=== PATIENT | female | born 1965 | race Caucasian/White ===

== ENCOUNTER → 2016-11-20 | Outpatient (CLI) | payer OTHER | LOC: CIMAGING 07:19 | DX: Z12.31 Encounter for screening mammogram for malignant neoplasm of breast (principal) | CPT/HCPCS: G0202 ==

== ENCOUNTER 2016-12-29 05:47 | Day surgery (SDC) | payer OTHER ==
--- NOTE | 2016-12-22 09:20 | GHP ---
[f rep st] PREOP HISTORY AND PHYSICAL PLANNED PROCEDURE: Hysteroscopy, morcellation of endometrial tissue, and endometrial ablation. INDICATION: Menorrhagia. HISTORY OF PRESENT ILLNESS: The patient is a 51-year-old, 2, para 2-0-0 -2, who has very heavy periods. Patient states her periods are monthly and very heavy for the first 3 days. She goes through a super plus tampon every 1- 2 hours and has moderate flow on the 4th day, then light flow on the 5th. She has cramps for the first day and a half. Patient has a history of a DVT after knee surgery. She did not have an evaluation for coagulopathy and was on blood thinners for 6 months following the DVT, and her periods were heavier during that time. Patient does a lot of travel to remote places and is interested in management options for her periods. Because she has had a history of a DVT following surgery, but no coagulopathy workup, she is not a candidate for control pills or hormone replacement, so we discussed management options of a Mirena IUD, endometrial ablation, or hysterectomy. Patient does have several trips coming up so would like to proceed with endometrial ablation as soon as possible. MEDICAL HISTORY: Significant for DVT following knee surgery. MEDICATIONS: Ambien as needed. SURGICAL HISTORY: Knee surgery in 11/2015, laser eye surgery and wrist surgery. ALLERGIES: No known drug allergies. SOCIAL HISTORY: Patient is . 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 She denies tobacco or drug use. She does drink 1-2 alcoholic beverages a week. FAMILY MEDICAL HISTORY: Noncontributory. 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 Periods are every 28 days, lasting 5-6 days and are very heavy. She is a 2, para 2-0-0-2. In 1998 she had a spontaneous vaginal delivery at 38 weeks. In 2000 she had a spontaneous vaginal delivery at 34 weeks. She denies any history of any abnormal Pap smears or sexually transmitted diseases. PHYSICAL EXAM: VITAL SIGNS: Stable. GENERAL APPEARANCE: Alert and oriented x3. Her heart rate is regularly regular. LUNGS: Clear to auscultation bilaterally. ABDOMEN: Soft, nondistended, nontender. EXTREMITIES: Reveal no calf tenderness or edema. PELVIC: Reveals a mobile mid position uterus with no adnexal masses. IMAGING: Pelvic ultrasound shows uterus measuring 7.4 x 4.5 x 4.8 cm with an endometrium of 1.2 cm and normal adnexa. Patient was mid cycle so that is an appropriate thickness. ASSESSMENT AND PLAN: 51-year-old 2, para 2-0-0-2 with a history of menorrhagia. She is not a candidate for oral contraception. Patient will undergo a hysteroscopy with morcellation of endometrial tissue and endometrial ablation. The patient has been counseled on the recommendation of having an endometrial biopsy performed before the ablation; patient declines this, and is aware that if the pathology is abnormal from the D and C, that she will need to have a hysterectomy. Risks and benefits have been reviewed with the patient, and patient has been properly consented. /[id number]/MODL MTDD
[2016-12-29] MEDS ORDERED: LIDOCAINE 1% 2 ML INJ ONE (05:55)
[2016-12-29] MEDS ORDERED: DOXYCYCLINE INJ 100 MG in NS 250 ML IV ONE (06:00)
[2016-12-29] MEDS ORDERED: MIDAZOLAM 2 MG/2 ML VIAL ONE (07:06)
[2016-12-29] MEDS ORDERED: PROPOFOL/EMULSION 500 MG/50 ML BOTTLE IV ONE (07:08)
[2016-12-29] MEDS ORDERED: fentaNYL 100 MCG/2 ML INJ ONE (07:08)
[2016-12-29] MEDS ORDERED: KETOROLAC 30 MG/1 ML SDV ONE ×2 (07:09→07:52)
[2016-12-29] MEDS ORDERED: LIDOCAINE 2% 5 ML SDV ONE (07:09)
[2016-12-29] MEDS ORDERED: DEXAMETHASONE 4 MG/ML VIAL ONE (07:09)
[2016-12-29] MEDS ORDERED: ONDANSETRON 4 MG/2 ML VIAL ONE ×2 (07:10→09:05)
[2016-12-29] MEDS ORDERED: SILVER NITRATE APPLICATOR 1 APPL TP ONE (07:34)
--- NOTE | 2016-12-29 08:55 | GOP ---
[f rep st] OPERATIVE REPORT DATE OF OPERATION: 12/29/2016 SURGEON: Gail Enrique DO ANESTHESIA: General with LMA. ANESTHESIOLOGIST: Dr. Bear. PREOPERATIVE DIAGNOSIS: Menorrhagia. POSTOPERATIVE DIAGNOSIS: Menorrhagia. PROCEDURE PERFORMED: Hysteroscopy with morcellation of endometrial tissue and endometrial ablation with Vivienne. FINDINGS: 1. Exam under anesthesia, mobile, anteverted uterus with no adnexal masses. 1. Hysteroscopic findings: Slightly thickened posterior endometrium. Bilateral tubal ostia visual ized. Post ablative hysteroscopy diffusely ablated endometrium. 2. SPECIMENS: Endometrial curettings. ESTIMATED BLOOD LOSS: 10 cc. INDICATIONS: Patient is a 51-year-old, 2, para 2-0-0-2, who has a longstanding history of h eavy menstrual period. The patient states they are very heavy for the first 3 days. She goes throu gh super plus tampon every 1 and half to 2 hours for 3 days and then has moderate flow on the 4th to 5th day. The patient has a history of a DVT after knee surgery, so is not a good candidate for ora l contraceptives or hormonal management. Management options were reviewed extensively with the eufemia ent and patient elected to proceed with a hysteroscopy with endometrial ablation. Patient declined endometrial biopsy within the office so an endometrial tissue morcellation was performed and patient is aware that if the pathology is abnormal, she will need to undergo a hysterectomy. Risks and cindi efits of the procedure were reviewed with the patient and patient was properly consented. DESCRIPTION OF PROCEDURE: Patient was taken to the operating room with intravenous fluids in place. She was given 100 mg of doxycycline intravenously. She was then placed on the operating room tabl e in the dorsal supine position where general anesthesia with an LMA was obtained. She was then rep ositioned into the dorsal lithotomy position with the [facility] stir[facility]ups and prepped and draped in a normal sterile fashion. Exam under anesthesia revealed a mobile, anteverted uterus with no adnexal masses. A speculum was then placed in the patient's vagina and Allis clamp was used to grasp the an terior lip of the cervix. The cervix was then carefully dilated to allow for the introduction of an operative hysteroscope. The hysteroscope was then introduced with fluid medium running. The endom etrial tissue appeared to be slightly thickened on the posterior wall of the uterus but was unremark able overall. Bilateral tubal ostia were visualized. The morcellator was then introduced, and a ci rcumferential morcellation was performed of the endometrial tissue. The uterus sounded to 8 cm. Th e Vivienne apparatus was then inserted and after assessing the cavity and passing the cavity assessme nt, the endometrial ablation was performed without difficulty. The Vivienne was then withdrawn and t he hysteroscope was then reintroduced and the endometrial cavity was diffusely ablated. Instruments were then removed the patient's vagina. The cervix was hemostatic. The patient was then returned to the dorsal supine position where she was easily awoken from anesthesia. Sponge count was correct . The patient was transferred to recovery room in stable condition. /[id number]/MODL
== END 2016-12-29 10:30 | disposition home or self-care (01) ==
LOC: FSGY 05:47
PROVIDERS: ATTEND Obstetrics & Gynecology
PROC: 0U5B8ZZ Destruction of Endometrium, Via Natural or Artificial Opening Endoscopic (ICD-10-PCS; principal; 2016-12-29 07:15)
DX: N92.0 Excessive and frequent menstruation with regular cycle (principal)
CPT/HCPCS: 58563; C1782; J1100; J1885; J2250; J2405; J2704; J3010

== ENCOUNTER → 2017-11-24 | Outpatient (CLI) | payer OTHER | LOC: CIMAGING 08:13 | PROVIDERS: ATTEND Family Medicine | DX: Z12.31 Encounter for screening mammogram for malignant neoplasm of breast (principal) ==

== ENCOUNTER → 2017-11-30 | Outpatient (CLI) | payer OTHER | LOC: CIMAGING 13:12 | PROVIDERS: ATTEND Family Medicine | DX: R92.8 Other abnormal and inconclusive findings on diagnostic imaging of breast (principal) ==

== ENCOUNTER → 2018-10-06 | Outpatient (CLI) | payer BC | LOC: CIMAGING 09:37 | PROVIDERS: ATTEND Family Medicine | DX: M25.511 Pain in right shoulder (principal); W19.XXXA Unspecified fall, initial encounter | CPT/HCPCS: 73000-PO ==

== ENCOUNTER → 2019-02-09 | Outpatient (CLI) | payer BC | LOC: EMCIMAGING 11:38 ==